=== PATIENT | female | born 2000 | race African-American/Black ===

== ENCOUNTER 2024-09-19 05:48 | Emergency (ER) | payer SELFPAY ==
[2024-09-19 05:50] VITALS: BP 118/74
--- NOTE | 2024-09-19 06:24 | ED.GENMED ---
History of Present Illness
General
Chief Complaint: Swelling
Source: patient
Exam Limitations: none
Time Seen by Provider: 09/19/24 06:06
Nursing documentation reviewed up to this point in time: agreed with
History of Present Illness
History of Present Illness:
23-year-old female presents with lower extremity swelling left greater than right no fevers or chills, no chest pain or shortness of breath was seen at an outside hospital or provider told that she had a swollen bone in her feet, she does work on
her feet, it is very hot recently, she has had ovarian cyst surgery nondrinker non-smoker denies
Past History
Past History
ED Past Medical History: Negative HTN or NIDDM
ED Past Surgical History: Gynecological
Social History
Tobacco: Non-smoker
Alcohol: None
Drug: None
Living: with family
Employment: Employed
Family History
Family History: Other (Grandmother with CHF)
Review of Systems
Review of Systems
All Other Systems: Not applicable
Constitutional: Denies fever or fatigue
EENT: Reports no symptoms
Respiratory: Reports no symptoms
Cardiac: Reports no symptoms
Musculoskeletal: Reports edema
Neurological: Reports no symptoms
Endocrine: Reports no symptoms
Hematologic/Lymphatic: Reports no symptoms
Psychiatric: Reports no symptoms
Phy Exam
Physical Exam
Physical Exam:
Physical Exam
General: no apparent distress, not acutely ill
Neck: No jaundice
Heart: s1/s2 regular rate and rhythm, no murmur. equal radial pulses.
Lungs: no acute respiratory distress. clear bilaterally
Neuro: alert and oriented. no focal neurological deficits
Skin: no rash
Psychiatric: well kept. interactive and cooperative
Extremities: Edema left greater than right
Course
Orders/Labs/Results
Orders:
Orders
09/19/24 06:26
US Periph Venous LOWER Ext LT Urgent
Comment:
Reason For Exam: Swelling
09/19/24 06:36
Complete Blood Count/With Diff Urgent
Comprehensive Metabolic Panel Urgent
Abnormal Lab Results
09/19/24
06:36
RBC 4.08 L 10^6/uL
(4.20-5.40)
Hgb 11.3 L g/dL
(12.0-16.0)
Hct 34.0 L %
(37.0-47.0)
Absolute Monos (auto) 0.7 H 10^3/uL
(0.1-0.6)
Neutrophils % 35.4 L %
(42.2-75.2)
Monocytes % 13.2 H %
(1.7-9.3)
Chloride 109 H mmol/L
(98-107)
09/19/24 06:36
09/19/24 06:36
Vital Signs
Initial and Last Documented VS:
Initial Vital Signs
Temp Pulse Resp BP Pulse Ox
98.2 F 64 18 118/74 98
09/19/24 05:50 09/19/24 05:50 09/19/24 05:50 09/19/24 05:50 09/19/24 05:50
Last Documented Vital Signs
Temp Pulse Resp BP Pulse Ox
98.2 F 64 18 118/74 98
09/19/24 05:50 09/19/24 05:50 09/19/24 05:50 09/19/24 05:50 09/19/24 06:26
MDM/Problems Addressed
Differential Diagnosis Includes:
Dependent edema, DVT, kidney disease, heart failure
MDM/Problems Addressed:
Lower extremities
*Radiology
Radiology exam reviewed: radiology read reviewed
*Pulse Oximetry
SaO2: 98
Oxygen Mode of Delivery: Room air
Patient hypoxic: no
*Critical Care Note
Total Time (30-74mins, 75-104mins- exclusive of procedures): Not Applicable
Update Note
Update Note:
Update labs noted ultrasound noted will recommend compression stocking
ED Attending Note
-
Portions of this chart may have been created with voice recognition software.� Occasional wrong word or��sound alike� substitutions may have occurred due to the inherent limitations of voice recognition software.
Discharge Plan
Departure
Patient Disposition: Home (Routine Discharge)
Date of Disposition: 09/19/24
Time of Disposition: 08:45
Patient with high blood pressure during this ER visit?: No
Condition: Good
Covid-19: Not Applicable
Discharge Problem:
Edema
Instructions: Dependent Edema (DC)
Referrals:
UNKNOWN - PT DOES,NOT KNOW [Family Provider]
Activity Restrictions/Additional Instructions:
Elevate your legs
Buy compression stockings at the pharmacy
Interventions
Interventions:
*Risk Screen - Suicide Last Done: 09/19/24 05:50
*Neglect/Abuse Screening Last Done: 09/19/24 05:50
Discharge Date and Time
Print Language: PUERTO RICAN
[2024-09-19 06:48] LABS: % Basophils 1.1 % (0-2); % Eosinophils 2.4 % (0-6); % Immature Granulocytes 0.2 % (0-0.5); % Lymphocytes 47.7 % (20.5-51.1); % Monocytes 13.2 % (1.7-9.3); % Neutrophils 35.4 % (42.2-75.2); Absolute Basophils 0.1 10^3/uL (0-0.2); Absolute Eosinophils 0.1 10^3/uL (0-0.7); Absolute Lymphocytes 2.6 10^3/uL (1.2-3.4); Absolute Monocytes 0.7 10^3/uL (0.1-0.6); Hemoglobin 11.3 g/dL (12.0-16.0); Mean Corp Hgb Conc. 33.2 g/dL (33.0-37.0); Mean Corpuscular Hgb 27.7 pg (27.0-31.0); Mean Corpuscular Volume 83.3 fL (81.0-99.0); Mean Platelet Volume 9.6 fL (7.4-10.4); Nucleated Red Blood Cells % 0 %; Platelet Count 235 10^3/uL (130-400); Red Blood Cell Count 4.08 10^6/uL (4.20-5.40); Red Cell Dist. Width 12.9 % (11.5-14.5); White Blood Cell Count 5.5 10^3/uL (4.8-10.8)
[2024-09-19 07:14] LABS: ALT (SGPT) < 10 U/L (0-35); AST (SGOT) 18 U/L (14-36); Alkaline Phosphatase 43 U/L (38-126); Blood Urea Nitrogen 9 mg/dl (7-17); Carbon Dioxide 23 mmol/L (22-30); Chloride 109 mmol/L (98-107); Glucose 90 mg/dl (70-99); Sodium 137 mmol/L (135-145); Total Bilirubin 0.5 mg/dl (0.2-1.3); Total Protein 6.8 g/dl (6.3-8.2); eGFR > 60.00
[2024-09-19 09:00] VITALS: BP 105/62
== END 2024-09-19 09:01 | disposition home or self-care (01) ==
LOC: EMR 05:48
PROVIDERS: EMERGENCY PHYSICIAN Emergency Medicine
DX: R60.0 Localized edema (principal); M79.605 Pain in left leg; Z91.013 Allergy to seafood
CPT/HCPCS: 99284; 80053; 85025; 93971